=== PATIENT | male | born 1975 | race Caucasian/White ===

== ENCOUNTER 2020-01-03 08:48 | Emergency (ER) | payer OTHER ==
--- NOTE | 2020-01-03 09:32 | EDM.PDOC ---
ED HPI GENERAL MEDICAL PROBLEM - General Chief Complaint: General Stated Complaint: FEVER DIFFCULTY BREATHING Time Seen by Provider: 01/03/20 08:52 Source of Information: Reports: Patient, Old Records History Limitations: Reports: No Limitations - History of Present Illness INITIAL COMMENTS - FREE TEXT/NARRATIVE: 45-year-old male with no past medical history presenting for COVID testing. Patient had 2 days of nausea, vomiting, and diarrhea last week on and Friday that have since resolved. He was asymptomatic for the past 3 days but his work sent him to the emergency department to have a COVID test. At present, he has no complaints. He is occasionally coughing but he states that he has a chronic cough due to smoking and this is not any worse than usual. He denies any sick contacts or recent travel. He denies any chest pain, shortness of breath, headache, neck pain, fever, recent vomiting or diarrhea, hematemesis, leg swelling, rash, dysuria, urinary frequency, hematuria. He denies history of coronary artery disease, drug use, recent significant caffeine intake. Denies history of VTE, hemoptysis, malignancy, recent immobilization or surgery or long travel. Denies any history of GI bleeding or hemorrhage. ROS: A 10-point review of systems was negative, except as noted in the HPI (or in the ROS section of this note). Past medical history: Reviewed, no additional pertinent history. Surgical history: Reviewed in system, no additional pertinent history. Social history: Reviewed in system, no additional pertinent history. Family history: Reviewed in system, no additional pertinent history. PHYSICAL EXAM Vital signs reviewed. Nursing notes reviewed. Constitutional: Awake, alert, non-distressed. Head: Normocephalic, atraumatic. Eyes: EOMI, conjunctiva normal, no discharge, no scleral icterus. Ears, Nose, Throat: External ears and nose normal, moist oral mucosa. Cardiovascular: Tachycardic, 2+ radial pulse, capillary refill less than 2 seconds. Pulmonary: normal work of breathing, no accessory muscle use. CTA BL. Abdomen/GI: Soft, nontender, nondistended, no guarding or rigidity, no masses. Musculoskeletal: No deformities. Integumentary: Appropriate color for ethnicity, warm, slightly diaphoretic, no pallor or jaundice, no rash. Neurologic: Alert, answering questions appropriately, normal speech, no facial droop, moving all extremities well. Psychiatric: Appropriate mood and affect, normal thought process. - Related Data Allergies Allergy/AdvReac Type Severity Reaction Status Date / Time No Known Allergies Allergy Verified 01/03/20 09:04 Home Meds: Home Meds . [No Known Home Meds] 01/03/20 [History] Past Medical History - Past Health History Medical/Surgical History: Denies Medical/Surgical History HEENT History: Reports: None Cardiovascular History: Reports: None Respiratory History: Reports: None Gastrointestinal History: Reports: None Genitourinary History: Reports: None Musculoskeletal History: Reports: None Neurological History: Reports: None Psychiatric History: Reports: None Endocrine/Metabolic History: Reports: None Hematologic History: Reports: None Immunologic History: Reports: None Oncologic (Cancer) History: Reports: None Dermatologic History: Reports: None - Infectious Disease History Infectious Disease History: Reports: None - Past Surgical History Head Surgeries/Procedures: Reports: None Social & Family History - Tobacco Use Smoking Status *Q: Current Every Day Smoker Years of Tobacco use: 25 Packs/Tins Daily: 1 - Caffeine Use Caffeine Use: Reports: Coffee - Alcohol Use Alcohol Use History: Yes Days Per Week of Alcohol Use: 1 Number of Drinks Per Day: 6 Total Drinks Per Week: 6 - Recreational Drug Use Recreational Drug Use: No ED ROS GENERAL - Review of Systems Review Of Systems: See Below ED EXAM, GENERAL - Physical Exam Exam: See Below EKG INTERPRETATION EKG Date: 01/03/20 Time: 09:38 Rhythm: Other (Sinus tachycardia) Rate (Beats/Min): [address] [place]: Normal P-Wave: Present QRS: Normal ST-T: Normal QT: Normal Comparison: NA - No Prior EKG EKG Interpretation Comments: Q-waves isolated to III. Course - Vital Signs Text/Narrative:: Differential diagnosis includes but is not limited to: Viral gastroenteritis, coronavirus infection, acute viral syndrome, pneumonia, sepsis, pulmonary embolism, arrhythmia, acute coronary syndrome, anemia, electrolyte disturbance, thyroid disease, volume depletion, etc. 0925: I am concerned by the patient's resting heart rate of 130 along with diaphoresis. He has no chest discomfort or shortness of breath. I did recommend a work-up including twelve-lead EKG, cardiac monitoring, blood work, chest x-rays, etc for evaluation of his abnormal vital signs. The patient is refusing to allow blood work or imaging studies due to financial concerns. I did recommend this testing multiple times and he is still refusing because he states he cannot afford it because he has no health insurance. I explained to him that an incomplete work-up could potentially miss a life-threatening diagnosis and he understands and accepts this risk. He is accepting of a twelve-lead EKG and a COVID test at this time. Twelve-lead EKG shows sinus tachycardia but no obvious ischemia, ectopy, or arrhythmia. 10:20 AM: COVID test is positive. I did call the patient by telephone to update him. Again I recommended blood work, x-rays, and further work-up for his resting tachycardia. I am concerned about his unstable vital signs. He is still adamantly refusing any further work-up beyond COVID testing and a twelve- lead EKG. I again reiterated that his condition could worsen or by refusing further medical work-up and he is still refusing this. Patient will be discharged in the emergency department AGAINST MEDICAL ADVICE. Spoke with patient by telephone to preserve PPE - patient refusing further evaluation and treatment. This was witnessed by FAVIAN Xiong. Patient understands that he should return to the emergency department immediately if his symptoms worsen or if he just changes his mind. At this point the patient seems competent and able to make his own decisions, no evidence of cognitive impairment or intoxication. We will recommend that he follow up with a family medicine clinic in the next 1 to 2 days for close reevaluation. Recommended urvw-[id number]-jwlauvc therapies including Tylenol, Motrin, and Robitussin, plenty of fluids, and social isolation. Disposition: discharged against medical advice. Last Recorded V/S: Last Vital Signs Temp 36.6 C 01/03/20 09:01 Pulse 116 H 01/03/20 10:16 Resp 16 01/03/20 10:16 BP 144/88 H 01/03/20 10:16 Pulse Ox 95 01/03/20 10:16 - Orders/Labs/Meds Orders: Active Orders 24 hr Category Date Time Status EKG Documentation Completion [RC] STAT Care 01/03/20 09:26 Active Pulse Oximetry [RC] ASDIRECTED Care 01/03/20 09:26 Active Labs: Laboratory Tests 01/03/20 Range/Units 09:35 COVID-19 (ERWIN) POSITIVE H (NEGATIVE) Departure - Departure Time of Disposition: 10:20 Disposition: Against Medical Advice 07 Clinical Impression: Left against medical advice, COVID-19 virus infection - Discharge Information *PRESCRIPTION DRUG MONITORING PROGRAM REVIEWED*: Not Applicable *COPY OF PRESCRIPTION DRUG MONITORING REPORT IN PATIENT ORALIA: Not Applicable Instructions: COVID-19 Frequently Asked Questions, COVID-19: How to Protect Yourself and Others - [facility] [place], Prevent the Spread of COVID-19 if You Are Sick - [facility] [place] Referrals: [facility] [Provider Group] - 1 Week (As needed.) Forms: ED Department Discharge Additional Instructions: You tested positive for COVID-19/coronavirus infection. There is no specific antiviral medication to treat this infection. Treatment is symptomatic, with llex-kpq-xzrrrkr medications for fever or pain such as Tylenol or Motrin. He can take nynq-vdi-rxjqxaa cough medications like Robitussin-DM or cough drops. Be sure you are drinking plenty of fluids. Warning signs are shortness of breath, chest pain, or any other new or concerning symptoms. I would follow-up with the family medicine clinic in the next 1 to 2 weeks if you are not feeling better. You need to be sure to wear a facemask, cover your cough, and wash your hands frequently. You should isolate yourself from coworkers, family, and friends as much as possible. You need to isolate until your symptoms have been present for at least 7 days in a row and you have been well for at least 72 hours (no cough, no fever, no body aches or chills, no shortness of breath, diarrhea, vomiting, etc.). We did recommend further work-up and evaluation for your high heart rate. We repeatedly recommended blood testing, x-rays, etc. I am concerned about you being more ill than you appear and you may have a life- threatening or emergency medical condition. You are refusing this work-up at this point and you understand your condition could worsen or you could by making this decision. You should come back to the emergency department immediately if you feel worse, or even if you just change your mind and want to have further testing or evaluation completed. Since you are choosing to leave the emergency department I would strongly advise you to follow-up with a family medicine clinic in the next 1 to 2 days for reevaluation. Please return the emergency department immediately if your symptoms worsen or if you feel worse. Thank you for choosing the [facility] emergency department in [place] for your medical needs today. It was a pleasure caring for you. The following information is given to patients seen in the emergency department who are being discharged. This information is to outline your options for follow-up care. We provide all patients seen in our emergency department with a follow-up referral. The need for follow-up, as well as the timing and circumstances, are variable depending upon the specifics of your emergency department visit. If you don't have a primary care physician on staff, we will provide you with a referral. We always advise you to contact your personal physician following an emergency department visit to inform them of the circumstance of the visit and for follow-up with them and/or the need for any referrals to a consulting specialist. The emergency department will also refer you to a specialist when appropriate. This referral assures that you have the opportunity for follow-up care with a specialist. All of these measure are taken in an effort to provide you with optimal care, which includes your follow-up. Under all circumstances we always encourage you to contact your private physician who remains a resource for coordinating your care. When calling for follow-up care, please make the office aware that this follow-up is from your recent emergency room visit. If for any reason you are refused follow-up, please contact the [facility] Emergency Department at and asked to speak to the emergency department charge nurse. If you do not have a primary care physician that is caring for you, you can contact these clinics below to set up an appointment to establish care: [facility] - Primary Care [address] [place] [id number] [address] Sepsis Event Note (ED) - Evaluation Sepsis Screening Result: No Definite Risk - Focused Exam Vital Signs: Vital Signs Temp Pulse Resp BP Pulse Ox 01/03/20 10:16 116 H 16 144/88 H 95 01/03/20 09:01 36.6 C 128 H 18 127/93 H 96 - My Orders Last 24 Hours: My Active Orders 01/03/20 09:26 EKG Documentation Completion [RC] STAT Pulse Oximetry [RC] ASDIRECTED - Assessment/Plan Last 24 Hours: My Active Orders 01/03/20 09:26 EKG Documentation Completion [RC] STAT Pulse Oximetry [RC] ASDIRECTED
== END 2020-01-03 10:55 | disposition left against medical advice (07) ==
LOC: MW.ED 08:48
DX: U07.1 COVID-19 (principal); F17.210 Nicotine dependence, cigarettes, uncomplicated; Z53.20 Procedure and treatment not carried out because of patient's decision for unspecified reasons
CPT/HCPCS: 93005; 99283; 99283-25; U0002